=== PATIENT | female | born 1985 | race Hispanic/Latino ===

== ENCOUNTER 2017-01-23 19:25 | Emergency (ER) | payer OTHER, MEDICAID ==
[2017-01-23 19:32] VITALS: RESP 16; O2SAT 100
[2017-01-23] MEDS ORDERED: Sodium Chloride 0.9% 1,000 ML IV ONE (19:51)
--- NOTE | 2017-01-23 19:51 | C.PDOC ---
History Of Present Illness Patient presents to the ED with complaints of suprapubic cramping abdominal pain for the last week. Patient states she feels as though she constantly needs to void but does not void. Patient notes an history of bowel infections that were treated and did not have infections for some time but is now having symptoms. Patient denies any other complaints at this time. Time Seen by Provider: 01/23/17 19:51 Chief Complaint (Nursing): Abdominal Pain History Per: Patient History/Exam Limitations: no limitations Onset/Duration Of Symptoms: Days Current Symptoms Are (Timing): Still Present Severity: Mild Pain Scale Rating Of: 4 Location Of Pain/Discomfort: Suprapubic Quality Of Discomfort: Cramping Recent travel outside of the [place]: No Past Medical History Vital Signs: Last Vital Signs Temp 98.0 F 01/23/17 19:27 Pulse 84 01/23/17 19:27 Resp 16 01/23/17 19:27 BP 131/82 01/23/17 19:27 Pulse Ox 100 01/23/17 20:09 - Medical History PMH: Asthma Surgical History: Tonsillectomy - [facility] Procedures DESTRUCT CHEST WALL LES (06/04/13) OTHER LOCAL DESTRUC SKIN (06/04/13) OTHER SKIN & SUBQ I D (07/19/13) Family History: States: Unknown Family Hx - Social History Hx Tobacco Use: No Hx Alcohol Use: Yes Hx Substance Use: No - Immunization History Hx Tetanus Toxoid Vaccination: No Hx Influenza Vaccination: No Hx Pneumococcal Vaccination: No Review Of Systems Constitutional: Negative for: Fever, Chills Gastrointestinal: Positive for: Abdominal Pain (suprapubic discomfort ). Negative for: Nausea, Vomiting, Diarrhea Genitourinary: Negative for: Dysuria Physical Exam - Physical Exam Appears: Non-toxic, No Acute Distress Skin: Warm, Dry Head: Atraumatic Eye(s): bilateral: Normal Inspection Oral Mucosa: Moist Neck: Supple Chest: Symmetrical Cardiovascular: Rhythm Regular Respiratory: No Rales, No Rhonchi, No Stridor, No Wheezing Gastrointestinal/Abdominal: Soft, Tenderness (suprapubic ), No Distention, No Guarding, No Rebound, Other (suprapubic discomfort ) Back: Normal Inspection Extremity: Normal ROM, No Tenderness Extremity: Bilateral: Atraumatic, Normal Color And Temperature Neurological/Psych: Oriented x3, Normal Speech, Normal Cognition Gait: Steady ED Course And Treatment - Laboratory Results Result Diagrams: 01/23/17 20:20 01/23/17 20:00 O2 Sat by Pulse Oximetry: 100 Pulse Ox Interpretation: Normal Reevaluation Time: 23:12 Reassessment Condition: Improved Disposition Counseled Patient/Family Regarding: Studies Performed, Diagnosis, Need For Followup - Disposition Referrals: Duy Guaman, TANIA, [employer] [Advanced Practice Nurse] - Disposition: HOME/ ROUTINE Disposition Time: 19:51 Condition: FAIR Additional Instructions: Please return if symptoms recur Prescriptions: Dicyclomine [Bentyl] 10 mg PO QID #20 cap Instructions: Acute Abdominal Pain (DC), Gas and Bloating (ED) - Clinical Impression Clinical Impression: Abdominal pain - Scribe Statement The provider has reviewed the documentation as recorded by the Scribe Xochitl Littlejohn All medical record entries made by the Scribe were at my direction and personally dictated by me. I have reviewed the chart and agree that the record accurately reflects my personal performance of the history, physical exam, medical decision making, and the department course for this patient. I have also personally directed, reviewed, and agree with the discharge instructions and disposition.
[2017-01-23 20:24] LABS: RBC URINE 1 /hpf (0-3); URINE BACTERIA RARE (<OCC); URINE BILIRUBIN NEGATIVE (NEGATIVE); URINE BLOOD NEGATIVE (NEGATIVE); URINE COLOR Yellow (YELLOW); URINE GLUCOSE (UA) NORMAL (Normal); URINE KETONE NEGATIVE (NEGATIVE); URINE LEUKOCYTE ESTERASE NEG Leu/uL (Negative); URINE PROTEIN NEGATIVE (NEGATIVE); URINE UROBILINOGEN NORMAL mg/dL (0.2-1.0); WBC URINE 1 /hpf (0-5)
[2017-01-23 20:26] LABS: BASO % 0.3 % (0.0-2.0); EOS # 0.2 K/uL (0.0-0.7); EOS % 1.7 % (0.0-4.0); LYMPH # 4.6 K/uL (1.0-4.3); MEAN CELL VOLUME 82.6 fL (81.0-99.0); MEAN CORPUSCULAR HEMOGLOBIN 28.2 pg (27.0-31.0); MEAN CORPUSCULAR HGB CONC 34.2 g/dL (33.0-37.0); MEAN PLATELET VOLUME 9.4 fL (7.2-11.7); MONO # 0.9 K/uL (0.0-0.8); MONO % 6.6 % (0.0-10.0); RED CELL DISTRIBUTION WIDTH 13.7 % (11.5-14.5)
[2017-01-23 20:28] LABS: WHITE BLOOD COUNT 14.3 K/uL (4.8-10.8)
[2017-01-23 20:30] LABS: CHLORIDE 100 mmol/L (98-107); SODIUM 139 mmol/L (132-148)
[2017-01-23 20:31] LABS: POTASSIUM 3.7 mmol/L (3.6-5.2)
[2017-01-23 20:32] LABS: GFR AFRICAN-AMERICAN > 60
[2017-01-23 20:32] LABS: INR 1.1
[2017-01-23 20:33] LABS: ALB/GLOB RATIO 1.1 (1.0-2.1); ALKALINE PHOSPHATASE 77 U/L (38-126); ALT/SGPT 21 U/L (9-52); AST/SGOT 25 U/L (14-36); BILIRUBIN,TOTAL 0.7 mg/dL (0.2-1.3); BLOOD UREA NITROGEN 14 mg/dL (7-17); CALCIUM 8.6 mg/dl (8.6-10.4); CARBON DIOXIDE 26 mmol/L (22-30); GLUCOSE,RANDOM 84 mg/dL (65-105); TOTAL PROTEIN 8.1 g/dL (6.3-8.3)
[2017-01-23] MEDS ORDERED: Iodixanol 320 MG/ML 100 ML BOTTLE IV ONE (21:20)
[2017-01-23 23:31] VITALS: BP 118/80; PULSE 75; TEMP 97.8
--- NOTE | 2017-01-24 12:02 | CT ---
PROCEDURE: CT Abdomen and Pelvis with contrast HISTORY: llq pain COMPARISON: None. TECHNIQUE: Contrast dose: 100 Visipaque Radiation dose: Total exam DLP = 1128.36 mGy-cm. This CT exam was performed using one or more of the following dose reduction techniques: Automated exposure control, adjustment of the mA and/or kV according to patient size, and/or use of iterative reconstruction technique. Contrast dose: 100 cc Visipaque FINDINGS: LOWER THORAX: Unremarkable. LIVER: liver is borderline enlarged measuring 18 cm. Mild fatty infiltration. GALLBLADDER AND BILE DUCTS: Gallbladder is incompletely distended -contracted which presumably account for thick-walled appearance. No gallbladder calculi seen. The the. PANCREAS: Unremarkable. No gross lesion or ductal dilatation. SPLEEN: Unremarkable. ADRENALS: Unremarkable. No mass. KIDNEYS AND URETERS: Unremarkable. No hydronephrosis. No solid mass. VASCULATURE: Unremarkable. No aortic aneurysm. BOWEL: Unremarkable. No obstruction. No gross mural thickening. APPENDIX: Normal appendix. PERITONEUM: Unremarkable. No free fluid. No free air. LYMPH NODES: Unremarkable. No enlarged lymph nodes. BLADDER: Unremarkable. REPRODUCTIVE: Unremarkable. BONES: No acute fracture. OTHER FINDINGS: None. IMPRESSION: Mild splenomegaly. Borderline hepatomegaly. Mild fatty infiltration. Small fat containing umbilical hernia
== END 2017-01-23 23:30 | disposition home or self-care (01) ==
LOC: C.ER 19:25
DX: R10.30 Lower abdominal pain, unspecified (principal)
CPT/HCPCS: 74177; 80053; 81001; 83690; 84703; 85025; 85610; 85730; 96361; 96374; 96375; 99284; J2270; J2405; J7040; Q9967

== ENCOUNTER 2017-11-11 11:07 | Emergency (ER) | payer OTHER, MEDICAID ==
[2017-11-11 11:32] VITALS: BP 139/65; PULSE 76; RESP 18; TEMP 98.5; O2SAT 99
--- NOTE | 2017-11-11 14:19 | C.PDOC ---
Time Seen by Provider: 11/11/17 12:58 Chief Complaint (Nursing): Cough, Cold, Congestion History Per: Patient Onset/Duration Of Symptoms: Days (about 1 month) Current Symptoms Are (Timing): Still Present Associated Symptoms: Cough Severity: Moderate Additional History Per: Prior Records Past Medical History Reviewed: Historical Data, Nursing Documentation, Vital Signs Vital Signs: Last Vital Signs Temp 98.5 F 11/11/17 11:28 Pulse 76 11/11/17 11:28 Resp 18 11/11/17 11:28 BP 139/65 11/11/17 11:28 Pulse Ox 99 11/11/17 11:28 - Medical History PMH: Asthma Surgical History: Tonsillectomy - [facility] Procedures DESTRUCT CHEST WALL LES (06/04/13) OTHER LOCAL DESTRUC SKIN (06/04/13) OTHER SKIN & SUBQ I D (07/19/13) Family History: States: Unknown Family Hx - Social History Hx Tobacco Use: No Hx Alcohol Use: No Hx Substance Use: No - Immunization History Hx Tetanus Toxoid Vaccination: Yes Hx Influenza Vaccination: No Hx Pneumococcal Vaccination: No Review Of Systems Except As Marked, All Systems Reviewed And Found Negative. Constitutional: Negative for: Fever ENT: Positive for: Nose Congestion. Negative for: Throat Pain Cardiovascular: Negative for: Chest Pain Respiratory: Positive for: Cough, Shortness of Breath (on/off), Wheezing. Negative for: Hemoptysis Gastrointestinal: Negative for: Vomiting, Abdominal Pain Musculoskeletal: Negative for: Neck Pain, Leg Pain Skin: Negative for: Rash Neurological: Negative for: Weakness, Numbness Physical Exam - Physical Exam Appears: Non-toxic, No Acute Distress Skin: Normal Color, Warm, Dry, No Rash Head: Atraumatic, Normacephalic Eye(s): bilateral: Normal Inspection, PERRL, EOMI Neck: Normal ROM, Supple Cardiovascular: Rhythm Regular Respiratory: No Accessory Muscle Use, Wheezing (intermittent, scattered) Gastrointestinal/Abdominal: Soft, No Tenderness Back: No CVA Tenderness Extremity: Normal ROM Neurological/Psych: Oriented x3, Normal Motor, Normal Sensation ED Course And Treatment O2 Sat by Pulse Oximetry: 99 Pulse Ox Interpretation: Normal - Radiology CXR: Viewed By Me, Read By Radiologist CXR Interpretation: Yes: No Acute Disease Disposition Counseled Patient/Family Regarding: Studies Performed, Diagnosis, Need For Followup, Rx Given - Disposition Disposition: HOME/ ROUTINE Disposition Time: 14:21 Condition: STABLE Additional Instructions: Follow up with your doctor. Return to the ER if you develop shortness of breath , fever, worsening of symptoms or if you have any other concerns. Prescriptions: Albuterol HFA [Ventolin HFA 90 mcg/actuation (8 g)] 2 puff IH Q4 PRN #1 unit PRN Reason: Wheezing predniSONE [predniSONE Tab] 2 tab PO DAILY #10 tab Instructions: Chronic Cough (ED) - Clinical Impression Clinical Impression: Cough variant asthma
--- NOTE | 2017-11-11 14:21 | RAD ---
HISTORY: Persistent cough x 1 month COMPARISON: Chest x-ray performed 07/20/15. TECHNIQUE: Chest PA and lateral FINDINGS: Examination limited by habitus. LUNGS: No focal consolidation. Please note that chest x-ray has limited sensitivity for the detection of pulmonary masses. PLEURA: No significant pleural effusion identified. No definite pneumothorax . CARDIOVASCULAR: Heart size appears within normal limits. OSSEOUS STRUCTURES: No acute osseous abnormality identified. VISUALIZED UPPER ABDOMEN: Unremarkable. OTHER FINDINGS: None. IMPRESSION: No focal consolidation, significant pleural effusion, or definite pneumothorax identified.
== END 2017-11-11 14:34 | disposition home or self-care (01) ==
LOC: C.ER 11:07
DX: J45.991 Cough variant asthma (principal)

== ENCOUNTER 2017-12-28 19:53 | Emergency (ER) | payer OTHER, MEDICAID ==
[2017-12-28 20:19] VITALS: BP 122/77; PULSE 76; RESP 20; TEMP 98.1; O2SAT 98
--- NOTE | 2017-12-28 20:54 | C.PDOC ---
History Of Present Illness 32 year old female presents to the ER with a complaint of right index finger pain and swelling after she slammed the car door on right hand. Denies weakness or numbness. Time Seen by Provider: 12/28/17 20:29 Chief Complaint (Nursing): Upper Extremity Problem/Injury History Per: Patient History/Exam Limitations: no limitations Onset/Duration Of Symptoms: Hrs Recent travel outside of the [place]: No Past Medical History Reviewed: Historical Data, Nursing Documentation, Vital Signs Vital Signs: Last Vital Signs Temp 98.1 F 12/28/17 20:11 Pulse 76 12/28/17 20:11 Resp 20 12/28/17 20:11 BP 122/77 12/28/17 20:11 Pulse Ox 98 12/29/17 00:09 - Medical History PMH: Asthma Surgical History: Tonsillectomy - [facility] Procedures DESTRUCT CHEST WALL LES (06/04/13) OTHER LOCAL DESTRUC SKIN (06/04/13) OTHER SKIN & SUBQ I D (07/19/13) Family History: States: Unknown Family Hx - Social History Hx Tobacco Use: No Hx Alcohol Use: No Hx Substance Use: No - Immunization History Hx Tetanus Toxoid Vaccination: Yes Hx Influenza Vaccination: No Hx Pneumococcal Vaccination: No Review Of Systems Musculoskeletal: Positive for: Hand Pain Neurological: Negative for: Weakness, Numbness Physical Exam - Physical Exam Appears: Non-toxic, No Acute Distress Skin: Warm, Dry Head: Atraumatic, Normacephalic Eye(s): bilateral: Normal Inspection Extremity: Normal ROM (x4), Tenderness (Rt 2nd digit distally), Capillary Refill (<2 seconds), No Deformity, Other (Right hand 2nd digit with small area of subungal hematoma at base of nail bed) Extremity: Bilateral: Normal Color And Temperature Pulses: Left Radial: Normal, Right Radial: Normal Neurological/Psych: Oriented x3, Normal Motor, Normal Sensation ED Course And Treatment O2 Sat by Pulse Oximetry: 98 (Room air) Pulse Ox Interpretation: Normal - Other Rad Right Hand x-ray X-Ray: Interpreted by Me, Viewed By Me Interpretation: No acute fractures or dislocations. Progress Note: Right hand x-ray ordered, results were negative. Motrin administered. Patient placed in finger splint for support and instructed to follow up with PMD or return if symptoms worsen. Disposition Counseled Patient/Family Regarding: Diagnosis, Need For Followup, Rx Given - Disposition Disposition: HOME/ ROUTINE Disposition Time: 21:22 Condition: STABLE Additional Instructions: Apply Ice to area Take motrin for pain Return to ER if worse Prescriptions: Ibuprofen [Motrin] 600 mg PO Q6H #20 tab Instructions: Contusion (DC) Forms: [employer] Connect (Georgian) - Clinical Impression Clinical Impression: Finger contusion, Subungual hematoma of digit of hand - PA / [employer] / Resident Statement MD/DO has reviewed & agrees with the documentation as recorded. - Scribe Statement The provider has reviewed the documentation as recorded by the Scribe Emilio Atkins All medical record entries made by the Radha were at my direction and personally dictated by me. I have reviewed the chart and agree that the record accurately reflects my personal performance of the history, physical exam, medical decision making, and the department course for this patient. I have also personally directed, reviewed, and agree with the discharge instructions and disposition.
--- NOTE | 2017-12-29 09:58 | RAD ---
PROCEDURE: Right Index finger radiographs. HISTORY: pain, slammed car door on hand COMPARISON: None. TECHNIQUE: AP radiograph of the right hand, as well as spot oblique and lateral images of index finger were obtained. FINDINGS: RIGHT INDEX FINGER: Normal right index finger, without fracture or focal lesion. Remainder of the right hand (as seen on the AP view) grossly intact. JOINTS: Normal. SOFT TISSUES: Normal. OTHER FINDINGS: None. IMPRESSION: Normal right index finger radiographs.
== END 2017-12-28 21:30 | disposition home or self-care (01) ==
LOC: C.ER 19:53
DX: S60.121A Contusion of right index finger with damage to nail, initial encounter (principal); W22.8XXA Striking against or struck by other objects, initial encounter